=== PATIENT | female | born 1965 | race American Indian/Alaskan Native ===

== ENCOUNTER 2019-03-25 18:19 | Emergency (ER) | payer MEDICAID ==
[2019-03-25] MEDS ORDERED: Ketorolac 30 MG/ML SDV IVPUSH ONE (19:35)
[2019-03-25] MEDS ORDERED: Ondansetron 4 MG/2 ML SDV IV ONE (19:35)
[2019-03-25] MEDS ORDERED: Clindamycin Phosphate 900 MG in Sodium Chloride 0.9% 100 ML IV ONE (19:35)
--- NOTE | 2019-03-25 19:39 | EDM.PDOC ---
ED HPI GENERAL MEDICAL PROBLEM - General Chief Complaint: ENT Problem Stated Complaint: INFECTION IN FACE? Time Seen by Provider: 03/25/19 19:37 Source of Information: Reports: Patient History Limitations: Reports: No Limitations - History of Present Illness INITIAL COMMENTS - FREE TEXT/NARRATIVE: c/o right facial swelling since Wednesday, not seen anyone, cap on tooth fell off sometime ago. been feeling feverish and throbbing pain. no appetite, nauseous. Treatments [employer]: Reports: NSAIDS Right Upper Face/Facial Pain Score (Numeric/FACES): 10 - Related Data Allergies Allergy/AdvReac Type Severity Reaction Status Date / Time Unable to Assess Allergy Unverified 03/25/19 19:01 Home Meds: Home Meds . [No Known Home Meds] 03/25/19 [History] Social & Family History - Family History Family Medical History: Noncontributory - Tobacco Use Smoking Status *Q: Current Some Day Smoker Years of Tobacco use: 35 Packs/Tins Daily: 0.2 Used Tobacco, but Quit: No Second Hand Smoke Exposure: Yes - Caffeine Use Caffeine Use: Reports: Coffee, Energy Drinks, Soda, Tea - Recreational Drug Use Recreational Drug Use: No ED ROS ENT - Review of Systems Review Of Systems: ROS reveals no pertinent complaints other than HPI. ED EXAM, ENT - Physical Exam Exam: See Below Exam Limited By: No Limitations General Appearance: Alert, WD/WN, Mild Distress, Moderate Distress, Other ( crying) Ears: Hearing Grossly Normal Mouth/Throat: Dental Abcess, Dental Pain, Dental Tenderness, Other (right facial swelling, right upper front molar extensive decay.) Head: Atraumatic Neck: Non-Tender, Full Range of Motion Respiratory/Chest: No Respiratory Distress Cardiovascular: Regular Rate, Rhythm GI/Abdominal: Soft, Non-Tender Neurological: Alert, Oriented, Normal Cognition, Normal Gait, No Motor/Sensory Deficits Psychiatric: Tearful Skin: Warm, Dry, Normal Color Course - Vital Signs Last Recorded V/S: Last Vital Signs Temp 36.4 C 03/25/19 19:02 Pulse 93 03/25/19 19:02 Resp 18 03/25/19 19:02 BP 133/74 03/25/19 19:02 Pulse Ox 100 03/25/19 19:02 - Orders/Labs/Meds Orders: Active Orders 24 hr Category Date Time Status CULTURE BLOOD [BC] Stat Lab 03/25/19 19:45 Received Sodium Chloride 0.9% [Normal Saline] 1,000 ml Med 03/25/19 19:45 Active IV ASDIRECTED Medication Orders Sodium Chloride (Normal Saline) 1,000 mls @ 500 mls/hr IV ASDIRECTED MAR Last Admin: 03/25/19 19:57 Dose: 500 mls/hr Labs: Laboratory Tests 03/25/19 03/25/19 03/25/19 Range/Units 19:45 19:45 19:45 WBC 9.6 (5.0-10.0) 10^3/uL RBC 5.01 (4.2-5.4) 10^6/uL Hgb 15.2 (12.0-16.0) g/dL Hct 45.7 (37.0-47.0) % MCV 91.2 (80-100) fL MCH 30.3 (27.0-34.0) pg MCHC 33.3 (33.0-35.0) g/dL Plt Count 312 (150-450) 10^3/uL Neut % (Auto) 66.5 (42.2-75.2) % Lymph % (Auto) 24.8 (20.5-50.1) % Atkinson % (Auto) 7.0 (2-8) % Eos % (Auto) 1.5 (1.0-3.0) % Baso % (Auto) 0.2 (0.0-1.0) % Sodium 139 (135-145) mmol/L Potassium 3.9 (3.6-5.0) mmol/L Chloride 105 (101-111) mmol/L Carbon Dioxide 25.0 (21.0-31.0) mmol/L Anion Gap 12.9 BUN 13 (7-18) mg/dL Creatinine 0.6 (0.6-1.3) mg/dL Est Cr Clr Drug Dosing 94.71 mL/min Estimated GFR (MDRD) > 60 BUN/Creatinine Ratio 21.66 Glucose 91 (74-105) mg/dL Lactic Acid 0.7 (0.5-2.2) mmol/L Calcium 8.8 (8.4-10.2) mg/dl Total Bilirubin 0.4 (0.2-1.0) mg/dL AST 22 (10-42) IU/L ALT 23 (10-60) IU/L Alkaline Phosphatase 74 (42-121) IU/L Total Protein 7.3 (6.7-8.2) g/dl Albumin 3.8 (3.2-5.5) g/dl Globulin 3.5 Albumin/Globulin Ratio 1.09 Meds: Medications Generic Name Dose Route Start Last Admin Trade Name Kin PRN Reason Stop Dose Admin Sodium Chloride 1,000 mls @ 500 mls/hr 03/25/19 19:45 03/25/19 19:57 Normal Saline IV 500 mls/hr ASDIRECTED MAR Administration Discontinued Medications Generic Name Dose Route Start Last Admin Trade Name Kin PRN Reason Stop Dose Admin Clindamycin Phosphate 900 mg/ 106 mls @ 200 mls/hr 03/25/19 19:35 03/25/19 20 :00 Sodium Chloride IV 03/25/19 20:06 200 mls/hr ONETIME ONE Administration Ketorolac Tromethamine 30 mg 03/25/19 19:35 03/25/19 20:00 Toradol IVPUSH 03/25/19 19:36 30 mg ONETIME ONE Administration Ondansetron HCl 4 mg 03/25/19 19:35 03/25/19 19:59 Zofran IV 03/25/19 19:36 4 mg ONETIME ONE Administration - Re-Assessments/Exams Free Text/Narrative Re-Assessment/Exam: 03/25/19 20:45 re-exam; s/p IV Rx = much better. Departure - Departure Time of Disposition: 20:45 Disposition: Home, Self-Care 01 Condition: Good Clinical Impression: Dental caries, Dental abscess - Discharge Information Instructions: Dental Abscess, [id number] Forms: ED Department Discharge Additional Instructions: 1) avoid solid foods 2) see DENTIST WEDNESDAY rx given; clindamycin 300mg qid x 40 vicodin 5/325mg bid prn x 4 - My Orders Last 24 Hours: My Active Orders 03/25/19 19:45 CULTURE BLOOD [BC] Stat Sodium Chloride 0.9% [Normal Saline] 1,000 ml IV ASDIRECTED - Assessment/Plan Last 24 Hours: My Active Orders 03/25/19 19:45 CULTURE BLOOD [BC] Stat Sodium Chloride 0.9% [Normal Saline] 1,000 ml IV ASDIRECTED
[2019-03-25] MEDS ORDERED: Sodium Chloride 0.9% 1,000 ML IV SCH (19:45)
[2019-03-25 20:25] LABS: ANION GAP 12.9; CHLORIDE,CL 105 mmol/L (101-111); SODIUM,NA 139 mmol/L (135-145)
== END 2019-03-25 20:55 | disposition home or self-care (01) ==
LOC: DL.ED 18:19
DX: K04.7 Periapical abscess without sinus (principal); K02.9 Dental caries, unspecified; F17.210 Nicotine dependence, cigarettes, uncomplicated
CPT/HCPCS: 36415; 80053; 83605; 85025; 87040; 96365; 96375; 99283; J1885; J2405; J3490; J7030; J7050

== ENCOUNTER 2021-07-29 11:04 | Emergency (ER) | payer MEDICAID ==
[2021-07-29 12:27] LABS: ANION GAP 11.2 mEq/L (7-13); CHLORIDE,CL 105 mmol/L (98-107); SODIUM,NA 151 mmol/L (136-145)
== END 2021-07-29 12:15 | disposition left against medical advice (07) ==
LOC: DL.ED 11:04
DX: E16.2 Hypoglycemia, unspecified (principal); R51.9 Headache, unspecified; Z88.5 Allergy status to narcotic agent
CPT/HCPCS: 36415; 80053; 82947; 83605; 84484; 85025; 99285-25